=== PATIENT | male | born 1960 | race Caucasian/White ===

== ENCOUNTER 2023-08-16 16:11 | Emergency (ER) | payer OTHER ==
[2023-08-16] MEDS ORDERED: Lidocaine 1% PF 5 ML VIAL ONE (16:15)
[2023-08-16] MEDS ORDERED: Bacitracin 1 PK ONE (16:33)
== END 2023-08-16 16:37 | disposition home or self-care (01) ==
LOC: BURERS 16:11
DX: S61.230A Puncture wound without foreign body of right index finger without damage to nail, initial encounter (principal); E11.9 Type 2 diabetes mellitus without complications; I10 Essential (primary) hypertension; Z79.899 Other long term (current) drug therapy; Z79.84 Long term (current) use of oral hypoglycemic drugs; W29.8XXA Contact with other powered hand tools and household machinery, initial encounter
CPT/HCPCS: 99283